=== PATIENT | female | born 2000 | race African-American/Black ===

== ENCOUNTER 2020-11-27 22:39 | Emergency (ER) | payer MEDICAID ==
[~2020-11-27] VITALS: Ht 167.6 cm; Wt 94.0 kg
[2020-11-27] MEDS ORDERED: ACETAMINOPHEN 325MG TABLET PO ONE (23:15)
[2020-11-27] MEDS ORDERED: PRENATAL VIT/FE FUMARATE/FA TABLET PO SCH (23:30)
[2020-11-27 23:49] LABS: BASOPHILS % 0.5 % (0.0-2.0); EOSINOPHILS % 1.1 % (0.0-5.0); HEMATOCRIT. 39.3 % (36.0-48.0); LYMPHOCYTES % 30.8 % (20.0-50.0); MEAN CORPUSCULAR HEMOGLOBIN 28.8 pg (28.0-32.0); MEAN PLATELET VOLUME 9.1 fl (7.4-10.4); NEUTROPHILS % 60.6 % (40.0-76.0); PLATELET 220 x1000/uL (130-400); RED BLOOD CELL COUNT 4.51 mill/uL (4.2-5.4); RED CELL DISTRIBUTION WIDTH 14.4 % (11.6-14.6)
[2020-11-28 00:18] LABS: CHLORIDE 107 mEq/L (98-107)
[2020-11-28 00:29] LABS: B-HCG QUANTITATIVE 7 mIU/mL (<3)
[2020-11-28] MEDS ORDERED: PREN-135 PO (01:48)
[2020-11-28] MEDS ORDERED: RHO(D) IMMUNE GLOBULIN 300 MCG/SYR IM ONE (02:00)
[2020-11-28 04:25] VITALS: BP 113/63
== END 2020-11-28 05:20 | disposition home or self-care (01) ==
LOC: ER 22:39
DX: R10.9 Unspecified abdominal pain (principal); J45.909 Unspecified asthma, uncomplicated; F12.10 Cannabis abuse, uncomplicated
CPT/HCPCS: 36415; 76830; 76856; 80053; 84702; 85025; 86850; 86900; 90384; 93005; 99285

== ENCOUNTER 2021-01-10 12:49 | Emergency (ER) | payer OTHER, MEDICAID ==
[~2021-01-10] VITALS: Ht 167.6 cm; Wt 91.0 kg
[~2021-01-10 12:49] MED LIST: PREN-135 PO
[2021-01-10] MEDS ORDERED: HYDROCODONE/ACETAMINOPHEN 5/325MG TABLET PO ONE (13:00)
[2021-01-10 13:23] LABS: BASOPHILS % 0.5 % (0.0-2.0); EOSINOPHILS % 0.6 % (0.0-5.0); HEMATOCRIT. 38.9 % (36.0-48.0); HEMOGLOBIN. 13.3 g/dL (12.0-16.0); LYMPHOCYTES % 15.9 % (20.0-50.0); MEAN CORPUSCULAR HEMOGLOBIN 28.8 pg (28.0-32.0); MEAN CORPUSCULAR VOLUME 84.4 fL (81.0-99.0); MEAN PLATELET VOLUME 8.5 fl (7.4-10.4); MONOCYTES % 6.4 % (2.0-8.0); NEUTROPHILS % 76.6 % (40.0-76.0); PLATELET 227 x1000/uL (130-400); RED BLOOD CELL COUNT 4.61 mill/uL (4.2-5.4); RED CELL DISTRIBUTION WIDTH 13.8 % (11.6-14.6)
[2021-01-10 13:32] LABS: CHLORIDE 108 mEq/L (98-107)
[2021-01-10 13:41] LABS: CLARITY URINE CLOUDY (CLEAR); COLOR URINE YELLOW (YELLOW); KETONES URINE TRACE (NEGATIVE); LEUKOCYTE ESTERASE URINE TRACE (NEGATIVE); NITRITE URINE NEGATIVE (NEGATIVE); OCCULT BLOOD URINE TRACE (NEGATIVE); PH URINE 6.5 (4.5-8.0); PROTEIN URINE 1+ (NEGATIVE); SPECIFIC GRAVITY URINE 1.023 (1.005-1.030); UROBILINOGEN URINE 0.2 E.U./dL (0.2-1.0)
[2021-01-10 13:43] LABS: B-HCG QUANTITATIVE < 1 mIU/mL (<3)
[2021-01-10] MEDS ORDERED: CEFTRIAXONE 1 G PREMIX 50 ML IV ONE (14:30)
[2021-01-10 14:37] VITALS: BP 118/70
[2021-01-10] MEDS ORDERED: CEPH500C2 MT (15:05)
== END 2021-01-10 15:22 ==
LOC: ER 12:49
DX: S09.8XXA Other specified injuries of head, initial encounter (principal); R10.9 Unspecified abdominal pain; R68.84 Jaw pain; N39.0 Urinary tract infection, site not specified; J45.909 Unspecified asthma, uncomplicated; Y08.89XA Assault by other specified means, initial encounter; Y93.89 Activity, other specified; Y92.9 Unspecified place or not applicable
CPT/HCPCS: 36415; 70486; 71045; 76830; 76856; 80053; 81003; 81025; 84702; 85025; 86850; 86870; 86900; 86901; 93005; 96365; 99285; J0696

== ENCOUNTER 2024-02-05 04:45 | Emergency (ER) | payer MEDICAID, OTHER ==
[~2024-02-05] VITALS: Ht 167.6 cm; Wt 116.0 kg
[~2024-02-05 04:45] MED LIST changes: +CEPH500C2 MT
[2024-02-05 04:51] VITALS: O2SAT 98
[2024-02-05 05:18] LABS: BASOPHILS % 0.8 % (0.0-2.0); EOSINOPHILS % 1.4 % (0.0-5.0); HEMATOCRIT. 35.6 % (36.0-48.0); HEMOGLOBIN. 12.2 g/dL (12.0-16.0); LYMPHOCYTES % 37.7 % (20.0-50.0); MEAN CORPUSCULAR HEMOGLOBIN 29.7 pg (28.0-32.0); MEAN CORPUSCULAR HGB CONC 34.2 g/dL (31.0-37.0); MEAN CORPUSCULAR VOLUME 86.6 fL (81.0-99.0); MEAN PLATELET VOLUME 9.1 fl (7.4-10.4); MONOCYTES % 7.6 % (2.0-8.0); NEUTROPHILS % 52.5 % (40.0-76.0); PLATELET 227 x1000/uL (130-400); RED BLOOD CELL COUNT 4.11 mill/uL (4.2-5.4); RED CELL DISTRIBUTION WIDTH 13.3 % (11.6-14.6); WHITE BLOOD COUNT 8.8 x1000/uL (4.5-11.0)
[2024-02-05 05:24] LABS: CHLORIDE 107 mEq/L (98-107); POTASSIUM 3.4 mEq/L (3.5-5.1); SODIUM 138 mEq/L (136-145)
[2024-02-05 05:25] LABS: CARBON DIOXIDE 23 mEq/L (21-32)
[2024-02-05 05:30] LABS: CREATININE 0.6 mg/dL (0.6-1.0); GLUCOSE 137 mg/dL (70-105); UREA NITROGEN BLOOD 5 mg/dL (9-23)
[2024-02-05 05:42] LABS: B-HCG QUANTITATIVE 49572 mIU/mL (<3)
[2024-02-05 08:20] LABS: ALANINE AMINOTRANSFERASE 26 IU/L (10-49); ASPARTATE AMINOTRANSFERASE 14 IU/L (<34); BILIRUBIN TOTAL 0.2 mg/dL (0.1-1.0); PROTEIN TOTAL 6.6 g/dL (6.0-8.3)
[2024-02-05 09:09] LABS: BILIRUBIN DIRECT < 0.1 mg/dL (<=3.0)
[2024-02-05] MEDS: ACETAMINOPHEN 325MG TABLET PO ONE (12:48)
[2024-02-05] MEDS: RHO(D) IMMUNE GLOBULIN 300 MCG/SYR IM ONE (12:48)
[2024-02-05 12:56] VITALS: BP 122/82; PULSE 78; RESP 14; TEMP 98.2
== END 2024-02-05 12:56 | disposition home or self-care (01) ==
LOC: ER 05:06
DX: O46.91 Antepartum hemorrhage, unspecified, first trimester (principal); J45.909 Unspecified asthma, uncomplicated; E11.9 Type 2 diabetes mellitus without complications; F12.10 Cannabis abuse, uncomplicated; Z3A.14 14 weeks gestation of pregnancy
CPT/HCPCS: 36415; 76805; 80048; 80076; 84702; 85025; 86850; 86870; 86900; 90384; 96372; 99285; J2791